=== PATIENT | female | born 1980 | race Caucasian/White ===

== ENCOUNTER 2022-03-14 08:02 | Outpatient (CLI) | payer BC, SELFPAY ==
[2022-03-14 10:22] LABS: Cholesterol* 205 mg/dL (90-199); HDL Cholesterol* 51 mg/dL (>=50); LDL Cholesterol Calculated 133 mg/dL (<100); Triglycerides* 107 mg/dL (40-149)
== END 2022-03-14 08:03 | disposition home or self-care (01) ==
PROVIDERS: Visit Provider Physician Assistant
DX: E03.9 Hypothyroidism, unspecified (principal); Z13.220 Encounter for screening for lipoid disorders
CPT/HCPCS: 80061; 84443

== ENCOUNTER 2022-06-09 13:35 | Outpatient (CLI) | payer BC, OTHER, SELFPAY ==
--- NOTE | 2022-06-09 13:40 | CRLHL7_ITS ---
For Patients: As a result of the Century Cures Act, medical imaging exams and procedure reports are released immediately into your electronic medical record. You may view this report before your referring provider. If you have questions, please contact your health care provider. BILATERAL SCREENING MAMMOGRAM WITH COMPUTER-AIDED DETECTION AND TOMOSYNTHESIS TECHNIQUE: CC, MLO and Implant displaced views were obtained. These mammographic images have been obtained using full-field digital technique. These mammographic images were interpreted with the benefit of computer-aided detection. Breast Tomosynthesis was used in this interpretation. COMPARISON FILM: 04/05/21, 02/14/20. FINDINGS: There are scattered areas of fibroglandular density IMPRESSION: There is no radiographic evidence for malignancy. ASSESSMENT: BI-RADS Category 2: Benign RECOMMENDATION: Routine screening mammogram in 1 year. A lay language report of this examination will be provided to the patient. Taras Bliss M.D. Diagnostic Radiologist [email or web address] Transcribed: 7:28 p.m. OUSMANE/Dictated by: Taras Bliss MD @ 06/10/2022 12:06:00 PM (Electronically Signed)
== END 2022-06-09 13:36 | disposition home or self-care (01) ==
PROVIDERS: Visit Provider Physician Assistant
DX: Z12.31 Encounter for screening mammogram for malignant neoplasm of breast (principal)
CPT/HCPCS: 77063; 77067

== ENCOUNTER 2022-06-26 09:54 | Outpatient (CLI) | payer OTHER, BC, SELFPAY ==
[2022-06-28 22:48] LABS: Follicle Stimulating Hormone 3.5 IU/L
== END 2022-06-26 09:55 | disposition home or self-care (01) ==
PROVIDERS: Visit Provider Physician Assistant
DX: R61 Generalized hyperhidrosis (principal)
CPT/HCPCS: 83001

== ENCOUNTER 2022-07-03 11:41 | Outpatient (CLI) | payer OTHER, BC, SELFPAY ==
[2022-07-03 15:21] LABS: Albumin* 4.8 g/dL (3.3-5.0)
[2022-07-03 15:24] LABS: Aspartate Amino Transferase* 23 U/L (12-35); Bilirubin Direct* 0.2 mg/dL (0.0-0.5); Bilirubin Total* 0.6 mg/dL (0.1-1.5); Total Protein* 7.7 g/dL (6.0-8.3)
[2022-07-03 15:25] LABS: Alanine Aminotransferase* 26 U/L (4-35); Alkaline Phosphatase* 61 U/L (40-150)
[2022-07-03 15:29] LABS: C Reactive Protein* < 0.5 mg/dL (0.5-1.0)
[2022-07-03 16:14] LABS: HIV 1/2/P24 Combo Screen* Negative (Negative)
== END 2022-07-03 11:42 | disposition home or self-care (01) ==
PROVIDERS: Visit Provider Physician Assistant
DX: R61 Generalized hyperhidrosis (principal); E03.9 Hypothyroidism, unspecified
CPT/HCPCS: 80076; 86140; 86480; 86703; 87086

== ENCOUNTER 2023-04-20 08:55 | Outpatient (CLI) | payer OTHER, SELFPAY | END 2023-04-20 08:56 | disposition home or self-care (01) | LOC: NFLDREF 04-22 13:11 | PROVIDERS: PCP Physician Assistant; Referring Provider Physician Assistant; Visit Provider Physician Assistant | DX: E03.9 Hypothyroidism, unspecified (principal) | CPT/HCPCS: 84443 ==

== ENCOUNTER 2023-05-12 13:14 | Outpatient (CLI) | payer OTHER, SELFPAY ==
--- NOTE | 2023-05-12 13:20 | CRLHL7_ITS ---
For Patients: As a result of the 21st Century Cures Act, medical imaging exams and procedure reports are released immediately into your electronic medical record. You may view this report before your referring provider. If you have questions, please contact your health care provider. DIGITAL SCREENING BILATERAL MAMMOGRAM USING TOMOSYNTHESIS AND COMPUTER-AIDED DETECTION INDICATION: 42-year-old asymptomatic female. BILATERAL breast implants in 2017. Screening evaluation. TECHNIQUE: CC and MLO views were obtained. This digital study was evaluated with the assistance of computer-aided detection. Digital breast tomosynthesis utilized. COMPARISON: 06/09/2022. 02/14/2020. FINDINGS: Breast Composition: There are scattered areas of fibroglandular density. There is a new small bilobed nodule in the central LEFT breast at approximately the 12 o`clock position best appreciated on the CC view, not convincingly demonstrated on the MLO view. Recommend a spot compression view in the CC projection. Rolled CC views medially and laterally may be helpful. A true ML view of the LEFT breast will also likely be helpful. The RIGHT breast is negative and unchanged. IMPRESSION: New small slightly lobulated nodule in the central LEFT breast 12 o`clock position best appreciate on the MLO view measuring up to 6 mm. Additional imaging and possible ultrasound are recommended. BI-RADS Category 0: Incomplete - Need Additional Imaging Evaluation [facility] will contact the patient for follow-up. A lay language report of this examination will be provided to the patient. Dictated by: Tony Fournier MD @05/13/2023 9:46:13 AM jj/Dictated by: Tony Fournier MD @ 05/13/2023 9:45:00 AM (Electronically Signed)
== END 2023-05-12 13:15 | disposition home or self-care (01) ==
LOC: MAMMO 13:15
PROVIDERS: PCP Physician Assistant; Visit Provider Physician Assistant
DX: Z12.31 Encounter for screening mammogram for malignant neoplasm of breast (principal); N63.20 Unspecified lump in the left breast, unspecified quadrant
CPT/HCPCS: 77063; 77067

== ENCOUNTER 2023-05-20 09:31 | Outpatient (CLI) | payer OTHER, SELFPAY ==
--- NOTE | 2023-05-20 09:45 | CRLHL7_ITS ---
For Patients: As a result of the Cures Act, medical imaging exams and procedure reports are released immediately into your electronic medical record. You may view this report before your referring provider. If you have questions, please contact your health care provider. DIGITAL DIAGNOSTIC LEFT MAMMOGRAM USING TOMOSYNTHESIS AND COMPUTER-AIDED DETECTION LEFT BREAST ULTRASOUND CLINICAL HISTORY: LEFT breast mass/asymmetry. COMPARISON: 05/12/2023. TECHNIQUE: Digital LEFT mammogram in two projections. Tomosynthesis and CAD utilized. Real-time ultrasound imaging of LEFT breast with imaging documentation. BREAST COMPOSITION: There are areas of scattered fibroglandular density. FINDINGS: 3D spot compression CC and 3D true lateral LEFT breast mammogram images submitted. Persistent nodular density is present within the upper LEFT breast 3 cm from the nipple. No architectural distortion. Targeted LEFT breast ultrasound performed at 12 o`clock 3 cm from the nipple. In this location, there is a simple circumscribed anechoic cyst measuring 6 x 2 x 3 millimeters. IMPRESSION: Benign simple cyst LEFT breast 12 o`clock 3 cm from the nipple measuring 6 millimeters. No evidence of malignancy. RECOMMENDATIONS: Annual BILATERAL screening mammography. Results and recommendations discussed with the patient. BI-RADS Category 2: Benign A lay language report of this examination will be provided to the patient. Dictated by Taras Bliss MD @ 05/20/2023 1:02:37 PM zee/Dictated by: Taras Bliss MD @ 05/20/2023 1:02:00 PM (Electronically Signed)
--- NOTE | 2023-05-20 10:15 | CRLHL7_ITS ---
For Patients: As a result of the Cures Act, medical imaging exams and procedure reports are released immediately into your electronic medical record. You may view this report before your referring provider. If you have questions, please contact your health care provider. PLEASE SEE DIGITAL DIAGNOSTIC LEFT MAMMOGRAM PERFORMED SAME DAY CRL:sara ruiz/Dictated by: Taras Bliss MD @ 05/20/2023 1:02:00 PM (Electronically Signed)
== END 2023-05-20 09:32 | disposition home or self-care (01) ==
LOC: MAMMO 09:32
PROVIDERS: Visit Provider Physician Assistant
DX: N63.20 Unspecified lump in the left breast, unspecified quadrant (principal); N60.02 Solitary cyst of left breast; R92.8 Other abnormal and inconclusive findings on diagnostic imaging of breast
CPT/HCPCS: 76642; 77065; G0279

== ENCOUNTER 2024-04-21 10:02 | Outpatient (CLI) | payer OTHER, SELFPAY ==
[2024-04-21 20:17] LABS: Chlamydia DNA Amplified* NOT DETECTED (No Detected); GC DNA Amplified* NOT DETECTED (No Detected)
== END 2024-04-21 10:03 | disposition home or self-care (01) ==
LOC: NFLDREF 10:03
PROVIDERS: Visit Provider Physician Assistant
DX: Z11.3 Encounter for screening for infections with a predominantly sexual mode of transmission (principal); E03.9 Hypothyroidism, unspecified
CPT/HCPCS: 84443; 87491; 87591

== ENCOUNTER 2024-05-16 12:24 | Outpatient (CLI) | payer OTHER, SELFPAY ==
--- NOTE | 2024-05-16 13:00 | CRLHL7_ITS ---
For Patients: As a result of the Century Cures Act, medical imaging exams and procedure reports are released immediately into your electronic medical record. You may view this report before your referring provider. If you have questions, please contact your health care provider. BILATERAL SCREENING MAMMOGRAM WITH COMPUTER-AIDED DETECTION AND TOMOSYNTHESIS TECHNIQUE: CC, MLO and Implant displaced views were obtained. These mammographic images have been obtained using full-field digital technique. These mammographic images were interpreted with the benefit of computer-aided detection. Breast Tomosynthesis was used in this interpretation. COMPARISON FILM: 05/12/23, 06/09/22, 04/05/21. FINDINGS: There are scattered areas of fibroglandular density. IMPRESSION: There is no radiographic evidence for malignancy. ASSESSMENT: BI-RADS Category 2: Benign RECOMMENDATION: Routine screening mammogram in 1 year. A lay language report of this examination will be provided to the patient. Taras Bliss M.D. Diagnostic Radiologist [email or web address] SP/Dictated by: Taras Bliss MD @ 05/19/2024 11:35:00 AM (Electronically Signed)
== END 2024-05-16 12:25 | disposition home or self-care (01) ==
PROVIDERS: Visit Provider Physician Assistant
DX: Z12.31 Encounter for screening mammogram for malignant neoplasm of breast (principal); Z98.82 Breast implant status
CPT/HCPCS: 77063; 77067

== ENCOUNTER 2024-06-13 15:54 | Emergency (ER) | payer OTHER, SELFPAY ==
[2024-06-13 15:59] VITALS: BP 166/88; PULSE 67; RESP 18; TEMP 36.4; O2SAT 100; BMI 27.5
--- OUTSIDE RECORDS SUMMARY | 2024-06-13 16:16 | XMS_ITS | Clinical Summary ---
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 Gender Identity Not on file Sexual Orientation Not on file Plan of Treatment Health Maintenance Due Date Last Done Comments ADVANCE CARE PLANNING 1981 ANNUAL REVIEW OF HM ORDERS 1981 GLUCOSE 1981 YEARLY PREVENTIVE VISIT 1981 HIV SCREENING 1996 HEPATITIS C SCREENING 1999 PAP 2002 LIPID 2021 PHQ-2 (once per calendar year) 2023 COVID-19 Vaccine ( season) 2024 04/26/2021, 04/05/2021 INFLUENZA VACCINE (#1) 2024 04/30/2022, 2017 MAMMO SCREENING 05/20/2025 05/20/2023, 05/12/2023 DTAP/TDAP/TD IMMUNIZATION (9 - Td or Tdap) 04/08/2032 04/08/2022, 12/05/2010, 11/07/2002, Additional history exists RSV VACCINE (1 - 1-dose 75+ series) 2056 HEPATITIS B IMMUNIZATION Completed 003, 07/07/2002, 05/02/2002 HPV IMMUNIZATION Aged Out No longer e ligible based on patient's age to complete this topic MENINGITIS IMMUNIZATION Aged Out No l onger eligible based on patient's age to complete this topic Pneumococcal Vaccine: Pediatrics (0 to 5 Years) and At-Risk Patients (6 to 64 Years) Aged Out No longer eligible based on patient's age to complete this topic RSV MONOCLONAL ANTIBODY Aged Out No l onger eligible based on patient's age to complete this topic Procedures Procedure Name Priority Date/Time Associated Diagnosis Comments MAMMOGRAM - HIM SCAN 05/20/2023 12:00 AM CDT from Last 3 Months or Most Recently Relevant to Health Maintenance Results * MAMMOGRAM - HIM SCAN (05/20/2023 12:00 AM CDT) Anatomical Region Laterality Modality Other 05/20/2023 us Provider Outside IMG MAMMOGRAPHY ORDERABLES Keri l Result from Last 3 Months or Most Recently Relevant to Health Maintenance Care Teams Cinder Block Maker Relationship Specialty Start Date End Date No Ref-Primary, Physician PCP - General 06/02/23 Karol Sylvester GC [address] [place] [id number] Genetic Counselor Genetic Counselor, [place] 06/02/23
--- OUTSIDE RECORDS SUMMARY | 2024-06-13 16:16 | XMS_ITS | Encounter Summary ---
Author Organization [facility] Address [address] [place] [address] Care Team Providers Care Top Lifter Name Role Phone No Ref-Primary, Physician Primary Care Provider Karol Sylvester GC Unavailable [phone] Encounter Details Date Type Department Care Team (Late st Contact Info) Description 06/16/2023 External Order Results [facility] [address] [place] [address] Outside, Provider Family history of malignant neoplasm; Family history of malignant neoplasm of breast; Family history of prostate cancer; Family history of uterine cancer; Family history of melanoma; Family history of colon cancer; Family history of nonmelanoma skin cancer Social History Tobacco Use Types Packs/Day Years Used Date Smoking Tobacco: Never Assessed Adolescent Education Answer Date Record ed Getting School Help Needed Not on file 06/01 Comments Unknown Sex and Gender Information Value Date Recorded Sex Assigned at Not on file 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 Gender Identity Not on file Sexual Orientation Not on file documented as of this encounter Plan of Treatment Not on file documented as of this encounter Procedures Procedure Name Priority Date/Time Associated Diagnosis Comments LABORATORY MISCELLANEOUS ORDER Routine 06/16/2023 12:00 AM DESK MANAGER Family history of malignant neoplasm Family history of malignant neoplasm of breast Family history of prostate cancer Family history of uterine cancer Family history of melanoma Family history of colon cancer Family history of nonmelanoma skin cancer documented in this encounter Results * Other Laboratory; [facility]; BRCA1/BRCA2 with automatic reflex to the Common Hereditary Cancers genetic testing panel (Laboratory Miscellaneous Order) (06/16/2023 12:00 AM DESK MANAGER) Blood 06/16/2023 us Karol Sylvester GC LAB - BLOOD ORDERABLES Keri reyes Result MYLES PFT documented in this encounter Visit Diagnoses Diagnosis Family history of malignant neoplasm Family history of unspecified malignant neoplasm Family history of malignant neoplasm of breast Family history of prostate cancer Family history of malignant neoplasm of prostate Family history of uterine cancer Family history of malignant neoplasm of genital organ, other Family history of melanoma Family history of other specified malignant neoplasm Family history of colon cancer Family history of malignant neoplasm of gastrointestinal tract Family history of nonmelanoma skin cancer Family history of skin conditions documented in this encounter Care Teams Top Lifter Relationship Specialty Start Date End Date No Ref-Primary, Physician PCP - General 06/02/23 Karol Sylvester GC [address] [place] [address] Genetic Counselor Genetic Counselor, MS 06/02/23 documented as of this encounter
--- OUTSIDE RECORDS SUMMARY | 2024-06-13 16:16 | XMS_ITS | Clinical Summary ---
Author Organization [employer] Address [place], [place] [address] Care Team Providers Care Keyseating Machine Set Up Operator Name Role Phone Taras Camacho MD Primary Care Provider + Allergies No known active allergies Medications Medication Sig Dispensed Refills Start Date End Date Status ALESSE-28 0.1 MG-20 MCG TAB take 1 tablet by oral route once daily 3 months 3 10/11/2007 Active vitamin-folic acid 1 mg ( VITAMIN) tablet/capsule Take 1 tablet by mouth once daily. Active OMEPRAZOLE (PRILOSEC ORAL) Take 1 Tab by mouth once daily. Active CALCIUM CARBONATE/VITAMIN D3 (CALCIUM + D ORAL) Take 1 tablet by mouth 2 times daily. Active ibuprofen (ADVIL; MOTRIN) 200 mg Cap Take 1-3 capsules by mouth every 6 hours if needed for Pain and Other (Specify). For uterine cramping. 100 capsule 0 06/06/2010 Active docusate (COLACE) 100 mg capsule Take 1-2 capsules by mouth once daily if needed for Constipation. 100 capsule 0 06/06/2010 Active oxyCODONE-acetami nophen, 5-325 mg, (PERCOCET 5-325) 5-325 mg per tablet Take 1-2 tablets by mouth every 6 hours if needed for Pain. For severe pain. Max acetaminophen dose: 4000 mg in 24 hrs. 15 tablet 0 06/06/2010 Active Active Problems Problem Noted Date Diagnosed Date Leg pain, right 06/06/2010 Edema in , delivered 06/05/2010 GERD (gastroesophageal reflux disease) 0 Twin - delivered 06/03/2010 Fever of unknown origin 06/03/2010 Abdominal pain complicating 06/03/2010 delivery 06/03/2010 Tubal ligation 06/03/2010 Repeat LST delivery at 32 6/7 weeks 02/2010 Overview (06/05/2010): per operative note pelvic peritoneal adhesions and Lower uterine segment window Malpresentation of fetus, delivered 06/03/2010 tachycardia 06/03/2010 Twin monochorionic diamniotic placenta 0 Estimated Date of Delivery Comme nts Yes 12/04/2008 Resolved Problems Problem Noted Date Diagnosed Date Resolved Date Traumatic separation of pubi c symphysis during delivery 04/20/2010 06/03/2010 Amenorrhea 04/06/2008 04/09/2008 Immunizations Name Administration Dates Next Due DT (Age < 7 years) 02/06/1993 DTP 03/28/1987 DTaP 11/07/2002 DTaP-HIB (TriHIBIT) 03/23/1985,1981,1981,1981 Hepatitis B (Adult) 06/09/2003,07/07/2002,2001 MMR 03/14/1994,09/13/1982 Oral Polio Vaccine 03/28/1987,03/23/1985, 982,1981 Tuberculin (PPD) 03/27/2004,200 4,11/07/2002,11/07/2002,05/02/2002,1 08/27/2000 Family History Medical History Relation Name Comments Diabetes Maternal Grandfather Hypertension Maternal Grandfather Cancer-breast Mother Cancer Paternal Grandfather Skin Relation Name Status Comments Maternal Grandfather Mother Paternal Grandfather Social History Tobacco Use Types Packs/Day Years Used Date Smoking Tobacco: Every Day Comments:rarely Alcohol Use Standard Drinks/Week Comments Yes 0 (1 standard drink = 0.6 oz pur e alcohol) Occasional Estimated Date of Delivery Comme nts Yes 12/04/2008 Sex and Gender Information Value Date Recorded Sex Assigned at Not on file Gender Identity Not on file Sexual Orientation Not on file Obstetrics History Para Term AB IAB SAB Ectopic Multiple Livin g Live Births 9 3 0 1 4 0 3 1 1 4 10 Date Outcome GA Total Labor Labor//3rd Weight Sex Type Anes PTL Desiree A1 A5 Name Clin SAB SPONTA NEOUS Decea sed SAB SPONTA NEOUS Decea sed SAB SPONTA NEOUS Decea sed 2001 6w0 d SPONTA NEOUS Decea sed 5 Para C-Sect ion Livin g Comments:breech 2004 37w 0d F C-Sect ion Livin g Sara Cotton yre/H owell Delivery Location:[facility] Comments:Failed Versio n 8 Ectopic ECTOPI C Decea sed Comments:Lap L salping ectomy 9 Para C-Sect ion Livin g Current 2009 32w 6d M C-Sect ion Livin g 9 9 FREELO VE,BB ONE [place] Delivery Location:[facility] 2009 32w 6d M C-Sect ion Livin g 8 9 FREELO VE,BB TWO Delivery Location:[facility] Last Filed Vital Signs Vital Sign Reading Time Taken Comments Blood Pressure 123/76 06/06/2010 9:42 AM BAR TENDER Pulse 96 06/06/2010 9:42 AM BAR TENDER Temperature 36.9 C (98.5 F) 06/06/2010 9:42 AM BAR TENDER Respiratory Rate 16 06/06/2010 9:42 AM BAR TENDER Oxygen Saturation 99% 06/04/2010 8:30 AM BAR TENDER Inhaled Oxygen Concentration - - Weight 90.3 kg (199 lb) 06/03/2010 2:20 PM BAR TENDER Height 167.6 cm (5' 6) 06/03/2010 2:20 PM BAR TENDER Body Mass Index 32.12 06/03/2010 2:20 PM BAR TENDER Plan of Treatment Health Maintenance Due Date Last Done Comments Tdap 1992 Depression screening for age 12+ 1993 HIV for age 15-65 1996 BMI (ht and wt on same day) for age 18+ 1999 Hepatitis C screening for age 18-79 1999 Tetanus booster 2001 Pap test for age 21-65 03/05/2024 , 03/05/2021, 12/04/2016, Additional history exists COVID-19 vaccine series (2023- season) 2024 Influenza for age 9-49 03/27/2024 RSV vaccine for adults or (1 - 1-dose 75+ series) 2056 Pneumococcal series for age 6-64 Aged Out No longer eligible based on patient's age to complete this topic Procedures Procedure Name Priority Date/Time Associated Diagnosis Comments CHEF BROILER OR FRY THIN PREP PAP SCREEN IMAGED Routine 03/05/2021 12:30 PM CDT from Last 3 Months or Most Recently Relevant to Health Maintenance Results * CHEF BROILER OR FRY THIN PREP PAP SCREEN IMAGED (03/05/2021 12:30 PM CDT) Case Report Gynecologic Cytology Report Case: [id number] Authorizing Provider: Mamie Ventura PA-C Collected: 03/05/2021 1230 Ordering [facility]: [facility] Received: 03/07/2021 0742 First Screen: Jossie Disla Specimen: CHEF BROILER OR FRY ThinPrep Vial Screening, Cervical/Vaginal 03/16/2021 10:42 AM CDT [facility] INTERPRETATION/ RESULT NEGATIVE FOR INTRAEPITHELIAL LESION OR MALIGNANCY (NIL) (none) 03/16/2021 10:42 AM CDT [facility] [employer] [facility] IMEN ADEQUACY Satisfactory for evaluation No endocervical component seen 03/16/2021 10:42 AM CDT [facility] [employer] [facility] HPV REQUEST HPV and PAP 03/16/2021 10:42 AM CDT [facility] [employer] [facility] Last Pap Date 12/04/2016 03/16/2021 10:42 AM [facility]T [facility] Last Pap Result NIL 10:42 AM CDT [facility] [employer] [facility] Comment:- HPV Additional Information 03/16/2021 10:42 AM CDT [facility] [employer] [facility] Comment: Interpreted at [facility] Central Laboratory - [address], [place] [address] Automated Review Successful 03/16/2021 10:42 AM CDT [facility] [employer] [facility] Comment:Specimen processed s uccessfully by automated lehr attendant device, ThinPrep Imaging System, [email or web address] ANCILLARY TESTING CHEF BROILER OR FRY HPV Ordered, Please see separate report 03/16/2021 10:42 AM CDT [employer] [facility] ENTRAL LABORATORY Note The pap test is a screening technique, not a diagnostic procedure. It is used primarily to screen for squamous cancers and precursor lesions. Published studies have shown that it is subject to both false negative and false positive results. The pap test should not be used as the sole means to diagnose or exclude pre-malignant and malignant lesions. 03/16/2021 10:42 AM CDT [facility] Other (Cervical/Vagina l) 03/05/2021 12:30 PM CDT 03/07/2021 7:42 AM CDT October Aud[facility] PATHOLOGY/[facility]OLOG[facility] LAB[facility] [address] [place] [address], from Last 3 Months or Most Recently Relevant to Health Maintenance Advance Directives * Full Code (Latest Code Status on File) Date Activated Date Inactivated Comments 06/03/2010 7:02 PM 06/06/2010 3:55 PM * Full Code Date Activated Date Inactivated Comments 06/03/2010 5:28 PM 06/03/2010 6:10 PM * Full Code Date Activated Date Inactivated Comments 06/03/2010 3:25 PM 06/03/2010 5:28 PM * Full Code Date Activated Date Inactivated Comments 04/20/2010 2:11 PM 04/20/2010 10:03 PM Care Teams Keyseating Machine Set Up Operator Relationship Specialty Start Date End Date Tarsa Camacho MD [address] [place] [address] PCP - General 10/19/06
--- OUTSIDE RECORDS SUMMARY | 2024-06-13 16:16 | XMS_ITS | Referral Summary ---
Author Organization [facility] Address [address] [place] [address]. 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
[2024-06-13] MEDS: MECLIZINE HCL 25 MG TABLET PO (16:26)
[2024-06-13] MEDS: predniSONE 20 MG TABLET 40 MG PO (16:26)
--- NOTE | 2024-06-13 16:45 | ED_ITS ---
HPI - General Adult General Chief complaint: Dizziness/Vertigo Stated complaint: dizziness Time Seen by Provider: 06/13/24 16:04 Source: patient Mode of arrival: ambulatory Limitations: no limitations History of Present Illness HPI narrative: 44-year-old female presents to the emergency department for evaluation of head rash. Symptoms started about 1/2 hour prior to arrival. Initially lasting about 90 seconds. Was completed by a feeling of head solis not necessarily room spinning but worse with head movement, lasted about 90 seconds initially. It went away for about 10 minutes and then with a sudden head movement, she is continuing to have similar waves and bilateral hand tingling associated with this. She has no history of migraines, no history of seizure disorder. No history of head injury. She has no prior history of similar episodes on but a friend of hers does get vertigo and as we discuss these episodes, she does question if this could be it. 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 No prior history of strokes. She does take estrogen supplementation in patch not oral form. She has hypothyroidism but no other autoimmune diseases. No history of cardiovascular disease. She does not take any anticoagulants. No headache, vision changes or other focal neurological changes. She does have a feeling of fluid in her left ear. She has some mild congestion and this has been present for 2 days. No fever. Past medical history notable for home replacement therapy, hypothyroidism. Only home medications are levothyroxine and topical estrogen. Nonsmoker. Family history of arrhythmia in her father but no premature stroke, bleeding or blood clotting disorders. ROS is notable for the neurological and HEENT symptoms as described above, otherwise denies times 12 systems. Related Data Home Medications ?Medication ?Instructions ?Recorded ?Confirmed multivitamin 1 tab PO QAM 04/21/24 06/13/24 Previous Rx's ?Medication ?Instructions ?Recorded estradiol 0.1 mg/24 hr semiweekly 1 patch transdermal 2XW #24 ea 04/21/24 transdermal patch levothyroxine 25 mcg tablet 25 mcg PO QDAY #90 tabs 04/21/24 meclizine 25 mg tablet 25 mg PO TID PRN vertigo #30 tabs 06/13/24 prednisone 20 mg tablet 40 mg (2 x 20 mg) PO DAILY 4 days 06/13/24 #8 tabs Allergies Allergy/AdvReac Type Severity Reaction Status Date / Time No Known Allergies AdvReac Verified 06/13/24 16:03 [facility] Medical History History of gestational diabetes mellitus (GDM) ?Z86.32 - Personal history of gestational diabetes (ICD-10) History of abnormal cervical Papanicolaou smear ?Z87.42 - Personal history of other diseases of the female genital tract (ICD-10) History of delivery (2009) ?Z87.51 - Personal history of pre-term labor (ICD-10) History of abnormal cervical Pap smear ?Z87.42 - Personal history of other diseases of the female genital tract (ICD-10) History of gestational diabetes ?Z86.32 - Personal history of gestational diabetes (ICD-10) Hypothyroidism ?E03.9 - Hypothyroidism, unspecified (ICD-10) Surgical History History of breast augmentation ?Z98.82 - Breast implant status (ICD-10) History of salpingectomy ?Z90.79 - Acquired absence of other genital organ(s) (ICD-10) History of ?Z98.891 - History of uterine scar from previous surgery (ICD-10) History of hysteroscopy ?Z98.890 - Other specified postprocedural states (ICD-10) Family History Mother Breast cancer, Onset Age: 48 Father High blood pressure Hypercholesterolemia Melanoma Maternal Grandmother Ovarian cancer Uterine cancer Paternal Grandmother Stroke Bleeding disorder Paternal Grandfather Colon cancer Melanoma Sister Hypercholesterolemia Uncle Melanoma Social History 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 Exercises 3 to 5 times a week. Non smoker. Alcohol use: 1-2 per month. Denies recreational drug use. Feels safe at home and no concerns with abuse. What is your current living situation?: I presently have a place to live Problems where you live: no known problems In the past 12 months, utilities in danger of being shut off: no How hard is it for you to pay for the very basics like food, housing, medical care, and heating: not very hard In the past 12 mos, have been you worried that your food would run out before you had money to buy more?: never true In the past 12 mos, the food you bought just didn't last and you didn't have money to buy more?: never true Smoking Status: Former smoker How often do you have a drink containing alcohol: never How often do you have six or more drinks on one occasion: Never AUDIT-C Alcohol total score: 0 Non-prescribed substance use: denies use How often does anyone, including family, friends and others, physically hurt you : never How often does anyone, including family, friends and others, insult or talk down to you: never How often does anyone, including family, friends and others, threaten you with harm: never How often does anyone, including family, friends and others, scream or curse at you: never service: No Exam Const: Vital Signs, click to edit/add: Vital Signs - 24 hr 06/13/24 15:59 06/13/24 17:12 Temperature 97.5 F L Pulse Rate [Pulse Oximeter] 67 Respiratory Rate 18 Blood Pressure [Ri ght Upper Arm] 166/88 H 147/85 H Pulse Oximetry 100 Oxygen Delivery Me thod Room Air Documenting provider has reviewed patient's vital signs: yes Common normals: no apparent distress and alert General appearance: cooperative, comfortable, well kempt and well developed HENMT: Common normals: normocephalic Head and scalp: normocephalic Face and sinus: normal facial exam Other: Left TM with slight serous effusion, no redness. Normal canal and external ear. Right TM, ear canal and external ear are all normal. Oropharynx with acyanotic lips, moist membranes normal dentition. Mild clear mucus postnasal drip. Eye: Common normals: PERRL and EOMs intact bilaterally Pupil: PERRL Other: Right beating horizontal nystagmus. Saluda-Hallpike maneuvers performed, strongly positive. Neck & C-Spine: Common normals: full ROM, no lymphadenopathy and no meningeal signs General: normal visual inspection Resp: Common normals: normal respiratory effort, no use of accessory muscles and clear to auscultation bilaterally Effort & inspection: able to speak in complete sentences Auscultation: clear to auscultation bilaterally Cardio: Common normals: regular rate, regular rhythm, S1 normal heart sound, S2 normal heart sound and no murmurs Rate: regular rate Rhythm: regular rhythm Heart sounds: S1 normal and S2 normal Extremity: Common normals: normal to inspection and normal capillary refill Neuro: Common normals: CN's II-XII intact bilaterally, moves all extremities and no focal motor deficits Sensorium/orientation: alert Meningeal signs: no meningeal signs Speech: speech normal Motor exam: strength 5/5 throughout, no tremor noted and no movement abnormalities noted Other: Right beating nystagmus as stated above, no other focal neurological changes. Psych: Common normals: thought process normal, cooperative and affect normal Appearance: well kempt Thought process: normal thought process Skin: Common normals: no rashes or lesions noted General skin exam: no rashes or lesions noted Course Course ED Course: Episode of, head solis with bilateral hand tingling. Her concerning for stroke, temporal lobe seizure, vascular event, head bleed but more likely benign positional vertigo. Patient's physical exam is not suggestive of stroke and is very suggestive of vertigo. Discussed initial findings with patient, do not recommend head CT or blood work based on physical exam. Rationale was discussed but did offer to do these tests if she feels as though they are necessary. She is in agreement that it seems like this is vertigo as I explained the physical exam findings. Counseled patient that we should try some prednisone and meclizine and see how she responds. Use that information to determine if further workup is warranted. She was in agreement with this. Reevaluation(s) Reevaluation #1: Re-evaluation 1 hour after medications shows patient feeling much better. She says that she has a tiny bit of room spinning with turning her head only but can walk around and has no further neurological changes. She was able to tolerate more of the exam. She passed her tandem leg stance and her in line stance with no errors or step outs. Speech normal, arm and leg movements normal. Balance and gait are improved. Rationale for no further workup discussed. Will treat with prednisone 40 mg once daily for 4 additional days, total of 5. Recommended [id number] Flonase and or Afrin. Meclizine 25 mg t.i.d. p.r.n. for vertigo. Prescription sent to pharmacy. 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 Alarm symptoms stroke-like symptoms were reviewed would warrant further ED presentation, she verbalizes understanding and agreement. Vital Signs Vital signs: Initial Vital Signs Temperature 97.5 F L 06/13/24 15:59 Temperature Source Temporal Artery Scan 06/13/24 15:59 Pulse Rate 67 06/13/24 15:59 Respiratory Rate 18 06/13/24 15:59 Blood Pressure 166/88 H 06/13/24 15:59 Blood Pressure Mean 114 H 06/13/24 15:59 Blood Pressure Position Sitting 06/13/24 15:59 Pulse Oximetry 100 06/13/24 15:59 Oxygen Delivery Method Room Air 06/13/24 15:59 Vital Signs Temperature 97.5 F L 06/13/24 15:59 Pulse Rate 67 06/13/24 15:59 Respiratory Rate 18 06/13/24 15:59 Blood Pressure 166/88 H 06/13/24 15:59 Pulse Oximetry 100 06/13/24 15:59 Oxygen Delivery Method Room Air 06/13/24 15:59 Temperature 97.5 F L 06/13/24 15:59 Pulse Rate 67 06/13/24 15:59 Respiratory Rate 18 06/13/24 15:59 Blood Pressure 147/85 H 06/13/24 17:12 Pulse Oximetry 100 06/13/24 15:59 Oxygen Delivery Method Room Air 06/13/24 15:59 Medications Administered Medications: Discontinued Medications Generic Name Dose Route Start Last Admin Trade Name Katelyn PRN Reason Stop Dose Admin Meclizine HCl 25 mg 06/13/24 16:18 06/13/24 16:26 Meclizine Hcl 25 Mg Tablet PO 06/13/24 16:19 25 mg ONCE ONE Administration Prednisone 40 mg 06/13/24 16:19 06/13/24 16:26 Prednisone 20 Mg Tablet PO 06/13/24 16:20 40 mg ONCE ONE Administration Discharge Plan Discharge Clinical Impression: Benign paroxysmal positional vertigo Instructions: Benign Paroxysmal Positional Vertigo (ED) Additional Instructions: As we discussed, with your reassuring neurological exam and strongly positive Saluda-Hallpike test, this seems more consistent with an episode of vertigo than a stroke, seizure or other dangerous brain pathology. I am glad that the prednisone and meclizine were helpful for you. Unfortunately, they will not take away all of the inflammation and symptoms. I strongly advise you to rest for the next [address] hours[address] if you are symptomatic. 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 Plan to return to regular duty on if things improve as expected. The meclizine should help reduce the vertigo somewhat. Make sure you are drinking lots of fluids. The meclizine can be taken up to every 8 hours will cause some dry mouth and constipation. As far as the prednisone, I recommend 40 mg daily for total of 5 days. Take tomorrow's dose in the morning with food. This will help reduce insomnia of taking it later in the day. If you have stroke-like symptoms, unilateral symptoms, difficulty speaking or any the other signs that we discussed, please return to the emergency department right away. Activity Level: Activity as Tolerated Discharge Diet: Regular Prescriptions: New prednisone 20 mg tablet 40 mg PO DAILY 4 Days Qty: 8 0RF meclizine 25 mg tablet 25 mg PO TID PRN (Reason: vertigo) Qty: 30 0RF No Action multivitamin Tablet 1 tab PO QAM levothyroxine 25 mcg tablet 25 mcg PO QDAY Qty: 90 3RF estradiol 0.1 mg/24 hr patch semiweekly 1 patch transdermal 2XW Qty: 24 3RF Rx Instructions: 1 patch twice weekly Follow Up/Referrals: Provider,Not a Local [Primary Care Provider] - Stand Alone Forms: [place] Info Instructions
[2024-06-13 17:12] VITALS: BP 147/85
== END 2024-06-13 17:54 | disposition home or self-care (01) ==
PROVIDERS: Emergency Provider Family Medicine
DX: H81.13 Benign paroxysmal vertigo, bilateral (principal)
CPT/HCPCS: 99283; 99284; A9270; J7512

== ENCOUNTER 2025-04-27 08:31 | Outpatient (CLI) | payer OTHER, SELFPAY ==
[2025-04-27 19:11] LABS: Chlamydia DNA Amplified* NOT DETECTED (No Detected); GC DNA Amplified* NOT DETECTED (No Detected)
== END 2025-04-27 08:32 | disposition home or self-care (01) ==
PROVIDERS: Visit Provider Physician Assistant
DX: Z13.9 Encounter for screening, unspecified (principal); N89.8 Other specified noninflammatory disorders of vagina
CPT/HCPCS: 80061; 84443; 87491; 87591

== ENCOUNTER 2025-07-17 14:51 | Outpatient (CLI) | payer OTHER, SELFPAY ==
--- NOTE | 2025-07-17 15:00 | CRLHL7_ITS ---
For Patients: As a result of the Century Cures Act, medical imaging exams and procedure reports are released immediately into your electronic medical record. You may view this report before your referring provider. If you have questions, please contact your health care provider. INDICATION: BILATERAL SCREENING MAMMOGRAM, ASYMPTOMATIC 45 Y/O FEMALE COMPARISON: 05/16/2024, 05/20/2023, 05/12/2023 TECHNIQUE: Digital mammogram in CC and MLO projections including computer-aided detection (CAD) and tomosynthesis. BREAST COMPOSITION: There are scattered areas of fibroglandular density. FINDINGS: No suspicious findings. ASSESSMENT: BI-RADS 2 Benign RECOMMENDATION: Annual screening mammogram. A lay language report of this examination will be provided to the patient. Dictated by: Charito Garcia MD @ 07/18/2025 13:46:20 (Electronically Signed)
== END 2025-07-17 14:52 | disposition home or self-care (01) ==
LOC: MAMMO 14:51
PROVIDERS: Visit Provider Physician Assistant
DX: Z12.31 Encounter for screening mammogram for malignant neoplasm of breast (principal)
CPT/HCPCS: 77063; 77067